=== PATIENT | male | born 1970 | race Caucasian/White ===

== ENCOUNTER 2018-12-31 10:34 | Observation (INO) | payer OTHER ==
[~2018-12-31] VITALS: Ht 170.2 cm; Wt 97.1 kg
[2018-12-31 11:22] LABS: BASOPHIL % 0.2 % (0-2); PLATELET COUNT 298 x10^3mcL (130-400); RED CELL DISTRIBUTION WIDTH 13.2 % (11.5-14.5)
[2018-12-31 11:31] LABS: CALCIUM 9.3 mg/dL (8.5-10.1); CARBON DIOXIDE 26.3 mmol/L (21-32); CHLORIDE SERUM 94 mmol/L (98-107); CREATININE SERUM 0.9 mg/dL (0.7-1.3); GFR1 > 60 mL/min; GLUCOSE SERUM 244 mg/dL (74-106); POTASSIUM SERUM 3.6 mmol/L (3.5-5.1); SODIUM SERUM 134 mmol/L (136-145)
[2018-12-31 11:35] LABS: ALKALINE PHOSPHATASE 133 U/L (46-116); ALT/SGPT 28 U/L (16-63); AST/SGOT 35 U/L (15-37); BILIRUBIN TOTAL 2.08 mg/dL (0.20-1.00)
[2018-12-31 11:37] LABS: TOTAL PROTEIN, SERUM 8.6 g/dL (6.4-8.2)
[2018-12-31 13:52] LABS: AMPHETAMINE QUAL UR POSITIVE (See below)
[2018-12-31 13:58] LABS: UA SPECIFIC GRAVITY >=1.030 (1.005-1.035); microscopic required? YES; urine erythrocyte NEGATIVE (NEGATIVE)
[2018-12-31 22:04] VITALS: BP 179/113
[2018-12-31 22:11] VITALS: Ht 170.2 cm; Wt 97.1 kg
[2019-01-01 05:47] VITALS: BP 146/96
[2019-01-01 06:38] LABS: CALCIUM 8.9 mg/dL (8.5-10.1); CARBON DIOXIDE 24.3 mmol/L (21-32); CHLORIDE SERUM 103 mmol/L (98-107); CREATININE SERUM 0.9 mg/dL (0.7-1.3); GFR1 > 60 mL/min; GLUCOSE SERUM 153 mg/dL (74-106); MAGNESIUM 1.9 mg/dL (1.8-2.4); POTASSIUM SERUM 3.2 mmol/L (3.5-5.1); SODIUM SERUM 138 mmol/L (136-145)
[2019-01-01 07:10] LABS: BASOPHIL % 0.4 % (0-2)
[2019-01-01 07:34] VITALS: BP 139/92
[2019-01-01 08:17] LABS: PLATELET COUNT 267 x10^3mcL (130-400); RED CELL DISTRIBUTION WIDTH 13.4 % (11.5-14.5)
[2019-01-01 12:27] VITALS: BP 152/90
[2019-01-01] MEDS ORDERED: LISINOPRIL20 MG PO (13:53)
[2019-01-01] MEDS ORDERED: GABAPENTIN800 M1 PO (13:55)
[2019-01-01] MEDS ORDERED: BACLOFEN20 MG PO (13:57)
[2019-01-01] MEDS ORDERED: DILANTIN100 MG PO (13:58)
[2019-01-01 16:24] VITALS: BP 143/83
[2019-01-01 21:33] VITALS: BP 140/83
[2019-01-02 05:39] VITALS: BP 140/90
[2019-01-02 09:51] VITALS: BP 155/85
[2019-01-02] MEDS ORDERED: ROC1I IV (16:07)
[2019-01-06 08:14] LABS: CK-BB 0 % (0); CK-MB 0 % (0-3); CK-MM 100 % (97-100); MACRO TYPE 1 0 % (Not Observed); MACRO TYPE 2 0 % (Not Observed)
== END 2019-01-02 17:51 | disposition left against medical advice (07) | DRG 682 ==
LOC: ED 10:34 → EDBD 10:34 → EDBEDREQSVC 19:11 → EDBEDREQTM 20:03 → EDBEDREQSVC 20:03 → EDBEDREQ 20:03 → MU 20:05 → DU 20:05 → MU 21:12 → DU 21:13
PROVIDERS: Emergency Medicine; ADMIT Internal Medicine Pulmonary Disease
DX: N17.9 Acute kidney failure, unspecified (principal); G93.41 Metabolic encephalopathy; M62.82 Rhabdomyolysis; E86.9 Volume depletion, unspecified; E87.6 Hypokalemia; J01.00 Acute maxillary sinusitis, unspecified; F15.129 Other stimulant abuse with intoxication, unspecified; G40.909 Epilepsy, unspecified, not intractable, without status epilepticus; R26.2 Difficulty in walking, not elsewhere classified; R54 Age-related physical debility; F17.210 Nicotine dependence, cigarettes, uncomplicated; Z68.33 Body mass index [BMI] 33.0-33.9, adult
CPT/HCPCS: 82962; 87804; 97116-GP; 97530-GP; G0378; G0480; J0696; J1644; J2060; J7030; J7042; Q0092

== ENCOUNTER 2019-01-03 03:36 | Emergency (ER) | payer OTHER ==
[~2019-01-03] VITALS: Ht 172.7 cm; Wt 79.4 kg
[~2019-01-03 03:36] MED LIST: BACLOFEN20 MG PO; DILANTIN100 MG PO; GABAPENTIN800 M1 PO; LISINOPRIL20 MG PO; ROC1I IV
[2019-01-03 03:47] VITALS: Ht 172.7 cm; Wt 79.4 kg
[2019-01-03 04:55] LABS: BASOPHIL % 0.4 % (0-2); PLATELET COUNT 253 x10^3mcL (130-400); RED CELL DISTRIBUTION WIDTH 13.4 % (11.5-14.5)
[2019-01-03 04:56] LABS: CARBON DIOXIDE 29.1 mmol/L (21-32); CHLORIDE SERUM 99 mmol/L (98-107); CREATININE SERUM 0.7 mg/dL (0.7-1.3); GFR1 > 60 mL/min; GLUCOSE SERUM 164 mg/dL (74-106); POTASSIUM SERUM 3.8 mmol/L (3.5-5.1); SODIUM SERUM 135 mmol/L (136-145)
[2019-01-03 05:01] LABS: ALKALINE PHOSPHATASE 100 U/L (46-116); ALT/SGPT 30 U/L (16-63); AST/SGOT 49 U/L (15-37); BILIRUBIN TOTAL 0.7 mg/dL (0.20-1.00); TOTAL PROTEIN, SERUM 7.2 g/dL (6.4-8.2)
[2019-01-03 09:32] LABS: AMPHETAMINE QUAL UR POSITIVE (See below)
--- NOTE | 2019-01-03 10:44 | NUR ---
01/03/19 1044 SS NOTE/KEYA [employer]K [employer]ER- CASE MGT DC COORDINATOR/NELL RECEIVED PHONE CALL FROM MARANDA ELLER IN ER DEPT. ER WANTING SS TO FIND PATIENT'S WHEELCHAIR; STATES PATIENT LEFT IT AT [facility] AND [place].
[2019-01-03 16:59] VITALS: BP 167/108
== END 2019-01-03 18:01 | disposition home or self-care (01) ==
LOC: ED 03:36
PROVIDERS: Emergency Medicine
DX: R51 Headache (principal); G89.29 Other chronic pain; M54.5 Low back pain; Z88.1 Allergy status to other antibiotic agents; Z88.8 Allergy status to other drugs, medicaments and biological substances; W18.39XA Other fall on same level, initial encounter; Y93.89 Activity, other specified; Y92.89 Other specified places as the place of occurrence of the external cause; Y99.8 Other external cause status
CPT/HCPCS: 36415